=== PATIENT | male | born 1975 | race Caucasian/White ===

== ENCOUNTER 2021-08-27 08:04 | Emergency (ER) | payer BC ==
[~2021-08-27 08:04] MED LIST: BENADRYL25 MG PO; PREDNISONE50 MG PO
[2021-08-27 09:40] LABS: HEMOGLOBIN 16.1 gm/dl (14.0-17.5); RED BLOOD COUNT 4.65 M/UL (4.20-5.50); WHITE BLOOD COUNT 7.5 K/UL (4.5-11.0)
[2021-08-27 10:05] LABS: BUN/CREATININE RATIO 18 (0-10)
[2021-08-27] MEDS ORDERED: PREDNISONE50 MG PO (10:54)
[2021-08-27] MEDS ORDERED: INDOCIN 50 MG C50 MG PO (10:54)
== END 2021-08-27 11:15 | disposition home or self-care (01) ==
LOC: ER1 08:04
PROVIDERS: Physician Assistant Medical
DX: M10.9 Gout, unspecified (principal); R74.01 Elevation of levels of liver transaminase levels; I10 Essential (primary) hypertension; K21.9 Gastro-esophageal reflux disease without esophagitis
CPT/HCPCS: 73610; 80053; 84550; 85025; 85652; 86140; 93971; 99284